=== PATIENT | female | born 1950 | race Caucasian/White ===

== ENCOUNTER 2019-06-16 13:14 | Emergency (ER) | payer MEDICARE, BC, OTHER ==
[~2019-06-16] VITALS: Ht 154.9 cm; Wt 66.4 kg
[2019-06-16] MEDS ORDERED: NITR0.4S14 SL (13:34)
[2019-06-16] MEDS ORDERED: ASPI81TA85 PO (13:34)
[2019-06-16] MEDS ORDERED: ALTA1CAP2 PO (13:34)
[2019-06-16] MEDS ORDERED: CORE3.12 PO (13:34)
[2019-06-16] MEDS ORDERED: LIPI20TA PO (13:34)
[2019-06-16] MEDS ORDERED: BUSP15TA47 PO (13:34)
[2019-06-16] MEDS ORDERED: NS 1,000 ML IV SCH (13:34)
--- NOTE | 2019-06-16 13:43 | REP ---
Portable chest x-ray: Single view. History: Chest pain. Findings: Monitoring electrodes overlie the chest. Lungs are symmetrically aerated and clear. Heart is not enlarged. Pulmonary vasculature is not increased. Impression: No acute disease. Electronically Signed by Juan Jose Adan MD 06/16/2019 01:34 P
[2019-06-16] MEDS ORDERED: ASPIRIN 81 MG CHEW TABLET PO ONE (13:45)
[2019-06-16] MEDS ORDERED: GI COCKTAIL 50ML BTL(HYOSCYAMINE/MAALOX/LIDOCAINE VISCOUS)(1:3:1) PO ONE (13:45)
[2019-06-16 13:56] LABS: BASO % 0.5 % (0.0-1.0); EOS # 0.2 10^3/uL (0.0-0.5); EOS % 3.3 % (0.0-3.0); HEMATOCRIT 40.8 % (36.0-47.0); HEMOGLOBIN 13.2 g/dl (12.0-15.5); LYMPH # 2.7 10^3/uL (1.5-5.0); MEAN CORPUSCULAR HEMOGLOBIN 29.9 pg (27.0-33.0); MEAN CORPUSCULAR HGB CONC 32.4 g/dl (32.0-36.5); MEAN CORPUSCULAR VOLUME 92.5 fl (80.0-96.0); MONO # 0.5 10^3/uL (0.0-0.8); MONO % 8.1 % (0.0-5.0); NEUTROPHILS # 2.4 10^3/uL (1.5-8.5); NEUTROPHILS % 40.9 % (36.0-66.0); PLATELET COUNT, AUTOMATED 240 10^3/uL (150-450); RED BLOOD COUNT 4.41 10^6/uL (4.00-5.40); WHITE BLOOD COUNT 5.8 10^3/uL (4.0-10.0)
[2019-06-16 14:09] LABS: INR 1.05; PROTHROMBIN TIME 13.4 SECONDS (11.8-14.0)
[2019-06-16 14:20] LABS: BLOOD UREA NITROGEN 16 MG/DL (7-18); CALCIUM LEVEL 8.1 MG/DL (8.8-10.2); CARBON DIOXIDE LEVEL 26 MEQ/L (21-32); CHLORIDE LEVEL 107 MEQ/L (98-107); CK-MB VALUE MASS 1.8 NG/ML (<3.6); CPK CREATINE PHOSPHOKINASE 84 U/L (26-192); CREATININE FOR GFR 0.89 MG/DL (0.55-1.30); GLOMERULAR FILTRATION RATE > 60.0 (>45); GLUCOSE, FASTING 93 MG/DL (70-100); LIPASE 113 U/L (73-393); MB/CK RELATIVE INDEX 2.14 (< OR =4); POTASSIUM SERUM 4.5 MEQ/L (3.5-5.1); SODIUM LEVEL 138 MEQ/L (136-145); TROPONIN I < 0.02 NG/ML (< 0.10)
[2019-06-16 18:58] LABS: CK-MB VALUE MASS 1.9 NG/ML (<3.6); CPK CREATINE PHOSPHOKINASE 70 U/L (26-192); MB/CK RELATIVE INDEX 2.71 (< OR =4); TROPONIN I < 0.02 NG/ML (< 0.10)
[2019-06-16 19:24] VITALS: BP 152/88
--- NOTE | 2019-06-16 19:26 | ECGEPIP ---
[facility] - ED Test Date: 2019-06-16 Pat Name: ANTONELLA FONG Department: Room: - Gender: Female Specification Manager: Nino VELAZQUEZ : 1950 Requested By: PAT Spivey Order Number: [id number] Reading MD: Dago Shepard Measurements Intervals [place] Rate: 50 P: 40 W[place]: 148 QRS: -13 QRSD: 96 T: -14 QT: 432 QTc: 395 Interpretive Statements SINUS BRADYCARDIA POSSIBLE LEFT ATRIAL ENLARGEMENT POSSIBLE LEFT VENTRICULAR HYPERTROPHY POOR R WAVE PROGRESSION NSTTW ABNORMALITIES NO PRIORS FOR COMPARISON Electronically Signed on 06-16-2019 19:26:22 EDT by Dago Shepard
--- NOTE | 2019-06-17 07:50 | ECGEPIP ---
[facility] - ED Test Date: 2019-06-16 Pat Name: ANTONELLA FONG Department: Room: - Gender: Female Interventional Sale Consultant: daljit : 1950 Requested By: ELVIA RODRIGUEZ Order Number: [id number] Reading MD: Dago Shepard Measurements Intervals [place] Rate: 51 P: 42 [place]: 150 QRS: -5 QRSD: 80 T: -6 QT: 456 QTc: 423 Interpretive Statements SINUS BRADYCARDIA POOR R WAVE PROGRESSION NSTTW ABNORMALITIES SIMILAR TO PRIOR ON SAME DATE Electronically Signed on 06-17-2019 7:50:37 EDT by Dago Shepard
== END 2019-06-16 19:25 | disposition home or self-care (01) ==
LOC: M ED 13:14
DX: I20.8 Other forms of angina pectoris (principal); R00.1 Bradycardia, unspecified; I10 Essential (primary) hypertension; E78.5 Hyperlipidemia, unspecified; Z79.82 Long term (current) use of aspirin; Z79.899 Other long term (current) drug therapy; Z88.8 Allergy status to other drugs, medicaments and biological substances; Z87.891 Personal history of nicotine dependence